=== PATIENT | female | born 2000 | race Caucasian/White ===

== ENCOUNTER 2023-04-26 12:00 | Inpatient (IN) ==
--- NOTE | 2023-04-26 12:11 | Emergency Department Note ---
Impression & Plan Depressive disorder, Vitamin D deficiency ED Provider Note NAME: JAMES MAHMOOD AGE: 23 SEX: F : 2000 ARRIVES VIA: Walk-In INFORMANT: Patient, ED PROVIDER(S): Pepito Iglesias MD CHIEF COMPLAINT: Mental illness concern MEDICAL DECISION MAKING: Patient presents due to concern for mental wellness concerns and associated increasing depression with fleeting thoughts of "what would happen if I did this?" Blood work was obtained patient was medically cleared and the patient was seen and evaluated by psych keycase assembler. Referral was made and patient was admitted to the psychiatric service Discussion w/ other healthcare providers: Quita Connolly with case management Prior /Outside records reviewed: I reviewed a an endocrinology visit from April 17, 2023 with Jeff Vasquez. Patient was seen due to concern for intractable vitamin D deficiency. 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 Differential diagnosis: Mood disorder, infection, hypoglycemia, electrolyte abnormalities, dehydration, medication side effect among others were considered. Diagnostics, as interpreted by me: ECG: None Medical decision rules: Suicide risk severity score Imaging studies: None HPI: Patient presents due to concern for worsening depressed mood as well as suicidal ideation. Patient states that she does not have a specific plan but will have fleeting thoughts where she will think about overdosing on medication that she has but she does not "engage much" in these thoughts. Patient does have a prior history of self-injurious behavior but never with intent to kill herself. The patient denies any HI or AVH. Sleep and appetite have been off the patient did have a recent change from Vyvanse to Adderall. Patient is compliant with her medications. Patient does work and states that work is stressful. Patient does smoke marijuana. The patient has not been drinking very much and last drank potentially in excess last Saturday. Patient denies any tobacco use. Patient does not have access to guns or weapons and denies feeling unsafe at home. The patient did have a telehealth appointment with her primary therapist who she tends to talk to twice a week and she was referred here for further evaluation and treatment PAST MEDICAL HISTORY: See Below PAST SURGICAL HISTORY: See Below SOCIAL HISTORY: See Below HOME MEDICATIONS: See Below ALLERGIES: See Below VITALS: See Below PHYSICAL EXAMINATION: GENERAL: NAD, non-toxic. Wearing glasses and a mask. EYE EXAM: Normal conjunctiva. PERRL, no anisocoria and EOM's grossly intact w/o pain. OROPHARYNX: Moist mucus membranes, grossly normal dentition. NECK: Supple, no nuchal rigidity, no adenopathy, non-tender. No signs of meningismus. FROM of the neck with good chin to chest and neck extension. No stridor. LUNGS: Clear to auscultation. Normal chest wall mechanics. HEART: NSR, no MRG. ABDOMEN: Abdomen soft, non-tender, no masses, no rebound or guarding. BACK: No CVA TTP. SKIN: No rashes and no bruising. UPPER EXTREMITIES: Upper extremities are grossly normal. LOWER EXTREMITIES: Grossly normal, no edema. NEURO EXAM: A&O x3, cranial nerves II-XII grossly intact, normal speech, moves all 4 extremities. 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 TMJ (temporomandibular joint disorder) ETD (eustachian tube dysfunction) Surgical History History of colonoscopy History of surgery meniscoplasty History of nasal septoplasty with turbinoplasty History of surgery fibroma removal History of tonsillectomy and adenoidectomy Family History Mother Hypertension Colorectal cancer Grandfather (Maternal) Stroke Grandfather (Paternal) Lung cancer smoker Father Environmental allergies Other Heart disease No family history of adverse response to anesthesia No family history of bleeding disorder Denies family history of Ovarian cancer Breast cancer Social History Smoking Status: Never smoker Do You Dip or Chew Tobacco: No; Hx Alcohol Use: Yes Alcohol Intake Frequency: 2-4 x/Month Hx Substance Use: Yes Non-Prescribed Medications: Marijuana Non-Prescribed Medications Comment: occasional marijuana for chronic pain - wants to stop; feels like its habit Preferred Language: Korean Communication Ability: Effective Incident Engineer Required: No Beliefs That Will Affect Care: None marital status: Single Current Living Situation: Significant Other current occupational status: employed 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 Feels Safe at Home: Yes Diet Comment: restricting calories to lose weight for surgery Physical Activity Frequency: Daily Physical Activity Frequency Comment: walking [id number] steops Gender Identity: Nonbinary Assistive Devices: Glasses Allergies Allergies Allergy/AdvReac Type Severity Reaction Status Date / Time clarithromycin [From Biaxin] Allergy Intermediate Hives Verified 04/17/23 13:06 COVID-19 (SARS-CoV-2) Allergy Intermediate HIVES WITH Verified 04/17/23 13:06 vaccine, christy 2ND DOSE house dust Allergy stuffy/runny Verified 04/17/23 13:06 nose Home Meds Home Medications Medication Instructions Recorded Confirmed vilazodone 40 mg tablet (Viibryd) 40 mg PO DAILY 06/11/21 04/26/23 dextroamphetamine-amphetamine ER 10 mg PO DAILY 04/26/23 04/26/23 10 mg 24hr capsule,extend release (Adderall XR) dextroamphetamine-amphetamine ER 20 mg PO QAM 04/26/23 04/26/23 20 mg 24hr capsule,extend release (Adderall XR) Results & Data (ED) Vital Signs Vital Signs - 24 hr 04/26/23 12:07 Temperature 36.2 C L Temperature Source Temporal Artery Scan Pulse Rate 125 H Pulse Rhythm Regular Respiratory Rate 20 Respiratory Effort / Characteristics Non-Labored Spontaneous Respiratory Depth Normal Respiratory Pattern Regular Blood Pressure 153/90 H Blood Pressure Mean 111 Blood Pressure Position Sitting Pulse Oximetry 100 Oxygen Delivery Method Room Air Sepsis Recent Fever Within 48 Hours No Sepsis New/Unexplained Change in Mental Status No Sepsis Action Taken by Nursing No Action Required Home Medications Current Medication List: was personally reviewed by me Laboratory Data Attestation: I reviewed the patient's lab results. 04/26/23 12:30 04/26/23 12:30 Lab Results 04/26/23 Range/Units 12:30 WBC 8.79 (4.8-10.8) K/ul RBC 4.90 (4.20-5.40) M/uL Hgb 13.7 (12.0-16.0) g/dl Hct 42.0 (37.0-47.0) % MCV 85.7 (80.0-100.0) fL MCH 28.0 (25.0-34.0) pg MCHC 32.6 (32.0-36.0) g/dL RDW Std Deviation 43.7 (36.4-46.3) fL RDW Coeff of Rox 14.1 (11.5-14.5) % Plt Count 349 (130-400) K/uL MPV 10.3 (9.4-12.4) fL Immature Gran % (Auto) 0.1 % Neut % (Auto) 43.4 % Lymph % (Auto) 46.2 % [place] % (Auto) 6.6 % Eos % (Auto) 2.7 % Baso % (Auto) 1.0 % Neut # (Auto) 3.81 (1.40-6.50) K/uL Lymph # (Auto) 4.06 H (1.20-3.40) K/uL [place] # (Auto) 0.58 (0.11-0.59) K/uL Eos # (Auto) 0.24 (0.00-0.50) K/uL Baso # (Auto) 0.09 (0.00-0.20) K/uL Immature Gran # (Auto) 0.01 (0.01-0.20) K/uL Sodium 140 (136-145) mmol/L Potassium 3.9 (3.5-5.1) mmol/L Chloride 106 (98-107) mmol/L Carbon Dioxide 27 (21-32) mmol/L Anion Gap 7 (3-11) BUN 9 (6-23) mg/dl Creatinine 0.66 (0.6-1.2) mg/dl Est Cr Clr Drug Dosing 152.3 ml/min Est GFR ( Amer) 142.3 ml/min Est GFR (Non-Af Amer) 122.8 ml/min BUN/Creatinine Ratio 13.6 (10-20) Glucose 69 L (70-99(Fasting)) mg/dl Calcium 9.5 (8.6-10.3) mg/dl Total Bilirubin 0.9 (0.2-1.0) mg/dl AST 21 (13-39) U/L ALT 12 (7-52) U/L Alkaline Phosphatase 69 (34-104) U/L Total Protein 7.4 (6.0-8.3) gm/dl Albumin 4.6 (3.4-5.0) gm/dl Globulin 2.8 (2.5-4.0) gm/dl Albumin/Globulin Ratio 1.6 (0.9-2) TSH 0.969 (0.300-4.500) uIu/ml Urine Color Yellow Urine Appearance Clear (Clear) Urine pH 7.0 (4.5-7.5) Ur Specific [place] 1.024 (1.000-1.030) Urine Protein Negative (Negative) Urine Glucose (UA) Negative (Negative) Urine Ketones Trace H (Negative) Urine Blood Negative (Negative) Urine Nitrite Negative (Negative) Urine Bilirubin Negative (Negative) Urine Urobilinogen Negative (Negative) Ur Leukocyte Esterase Negative (Negative) Urine Test Negative (Negative) Salicylates < 3.0 L (3.0-30) mg/dl Urine Opiates Screen Neg (Neg) Ur Methadone, Qual Neg (Neg) Acetaminophen < 3 L (10-30) ug/ml Urine Barbiturates Neg (Neg) Ur Phencyclidine (PCP) Neg (Neg) U Amphetamin/Meth Scrn Pos H (Neg) MDMA (Ecstasy) Screen Neg (Neg) U Benzodiazepines Scrn Neg (Neg) Ur Cocaine Metabolite Neg (Neg) U Marijuana (THC) Screen Pos H (Neg) Ethyl Alcohol mg/dL < 10.0 (<10.0) mg/dl Administered Medications Amphetamine/Dextroamphetamine (Amphetamine Asp/Sulf/Dextramph Er 20 Mg Cap) 20 mg PO Q24H [facility] Stop: 05/12/23 06:59 Last Admin: 04/29/23 08:28 Dose: 20 mg Documented By: Admin: 04/28/23 08:45 Dose: 20 mg Documented By: [id number] Cyanocobalamin (Cyanocobalamin (B-12) 500 Mcg Tablet) 500 mcg PO QAM [facility] Stop: 05/27/23 16:14 Last Admin: 04/29/23 08:28 Dose: 500 mcg Documented By: Admin: 04/28/23 08:45 Dose: 500 mcg Documented By: [id number] Admin: 04/27/23 17:15 Dose: 500 mcg Documented By: [email or web address] Ergocalciferol (Ergocalciferol 50,000 Units 1250 Mcg Cap) 50,000 units PO WeSa@0900 [facility] Stop: 05/27/23 16:29 Last Admin: 04/27/23 17:16 Dose: 50,000 units Documented By: ANTOINE Hydroxyzine HCl (Hydroxyzine Hcl 25 Mg Tab) 50 mg PO HSZ PRN PRN Reason: Insomnia Stop: 05/26/23 21:10 Last Admin: 04/29/23 01:03 Dose: 50 mg Documented By: ABDI Naltrexone HCl (Naltrexone Hcl 50 Mg Tab) 50 mg PO DAILY [facility] Stop: 05/28/23 08:59 Last Admin: 04/29/23 08:29 Dose: 50 mg Documented By: Admin: 04/28/23 08:45 Dose: 50 mg Documented By: [id number] Trazodone HCl (Trazodone Hcl 50 Mg Tab) 50 mg PO HS [facility] Stop: 05/28/23 21:59 Last Admin: 04/28/23 22:11 Dose: 50 mg Documented By: ANTOINE Vilazodone HCl (Vilazodone Hcl 40mg/Tab (1 Ea)) 1.5 each PO DAILY [facility]; Protocol Stop: 05/29/23 08:59 Last Admin: 04/29/23 08:29 Dose: 1.5 each Documented By: TLF Discontinued Medications Influenza Virus Vaccine Quadrival (Influenza Virus Quadrivalent Vaccine (Iiv4) 0.5 Ml Syr) 0.5 ml IM .ONCE ONE Stop: 04/27/23 09:01 Last Admin: 04/27/23 15:20 Dose: 0.5 ml Documented By: ANTOINE Miscellaneous (Viibryd 40mg Tablet--Order Awaiting Action) 1 each N/A QS [facility] Stop: 05/28/23 00:00 Last Admin: 04/28/23 04:08 Dose: Not Given Documented By: JONATAN Vilazodone HCl (Vilazodone Hcl 1 Ea) 1 each PO DAILY [facility] Stop: 05/28/23 08:59 Last Admin: 04/28/23 08:46 Dose: 1 each Documented By: [id number] Discharge Plan Visit Data Chief Complaint: Mental Health Evaluation Stated Complaint: SUICIDAL THOUGHTS ED Provider: Pepito Iglesias Discharge Problem: Depressive disorder, Vitamin D deficiency Patient Disposition: Admitted As Inpatient Discharge Instructions Interventions: ED Discharge Assessment Last Done: 04/26/23 21:01
[2023-04-26 12:53] LABS: Basophils # (auto) 0.09 K/uL (0.00-0.20); Eosinophils # (auto) 0.24 K/uL (0.00-0.50); Eosinophils % (auto) 2.7 %; Hemoglobin 13.7 g/dl (12.0-16.0); Immature Granulocytes # (auto) 0.01 K/uL (0.01-0.20); Immature Granulocytes % (auto) 0.1 %; Lymphocytes # (auto) 4.06 K/uL (1.20-3.40); Lymphocytes % (auto) 46.2 %; Mean Corpuscular Hgb Conc 32.6 g/dL (32.0-36.0); Mean Corpuscular Volume 85.7 fL (80.0-100.0); Mean Platelet Volume 10.3 fL (9.4-12.4); Monocytes # (auto) 0.58 K/uL (0.11-0.59); Monocytes % (auto) 6.6 %; Neutrophils # (auto) 3.81 K/uL (1.40-6.50); Neutrophils % (auto) 43.4 %; Platelet Count 349 K/uL (130-400); RDW Coefficient of Variation 14.1 % (11.5-14.5); RDW Standard Deviation 43.7 fL (36.4-46.3); White Blood Count 8.79 K/ul (4.8-10.8)
[2023-04-26 12:56] LABS: Appearance Urine Clear (Clear); Bilirubin Urine Negative (Negative); Blood Urine Negative (Negative); Color Urine Yellow; Glucose Urine UA Negative (Negative); Ketones Urine Trace (Negative); Leukocyte Esterase Urine Negative (Negative); Nitrite Urine Negative (Negative); Pregnancy Test, Urine Negative (Negative); Protein Urine Negative (Negative); Specific Gravity Urine 1.024 (1.000-1.030); Urobilinogen Urine Negative (Negative)
[2023-04-26 13:50] LABS: Albumin Globulin Ratio 1.6 (0.9-2); Albumin Level 4.6 gm/dl (3.4-5.0); BUN Creatinine Ratio 13.6 (10-20); Bilirubin,Total 0.9 mg/dl (0.2-1.0); Calcium 9.5 mg/dl (8.6-10.3); Creatinine Clr Calc Pharmacy 152.3 ml/min; Est GFR (African American) 142.3 ml/min; Est GFR (Non-African American) 122.8 ml/min; Globulin 2.8 gm/dl (2.5-4.0); Potassium 3.9 mmol/L (3.5-5.1); Total Protein 7.4 gm/dl (6.0-8.3)
[2023-04-26 14:00] LABS: Thyroid Stimulating Hormone 0.969 uIu/ml (0.300-4.500)
[2023-04-26 14:05] LABS: Amphetamines+Metham, Urine Pos (Neg); Barbiturates, Urine Neg (Neg); Benzodiazepine, Urine Neg (Neg); Cocaine, Urine Neg (Neg); MDMA (Ecstacy), Urine Neg (Neg); Marijuana, Urine Pos (Neg); Methadone, Urine Neg (Neg); Opiate, Urine Neg (Neg); Phencyclidine, Urine Neg (Neg)
[2023-04-26 15:03] LABS: Acetaminophen < 3 ug/ml (10-30); Salicylate < 3.0 mg/dl (3.0-30)
--- NOTE | 2023-04-26 17:29 | Emergency Department Note ---
ED Visit Note This patient was signed to me at shift change by Dr. Iglesias. The patient was medically cleared at that point and was waiting to be evaluated/voluntarily admitted. The patient was seen and evaluated by 3 S. and is going to sign involuntarily on a 201 for further inpatient treatment and evaluation. .
[2023-04-26] MEDS ORDERED: hydrOXYzine HCl 25 MG TAB PO PRN ×2 (21:11)
[2023-04-26] MEDS ORDERED: MAGNESIUM HYDROXIDE SUSP 30 ML UDC PO PRN (21:11)
[2023-04-26] MEDS ORDERED: ACETAMINOPHEN 325 MG TAB PO PRN (21:11)
[2023-04-26] MEDS ORDERED: SODIUM CHLORIDE 0.65% NA SOLN 45 ML (OCEAN) PRN (21:11)
[2023-04-26] MEDS ORDERED: BISMUTH SUBSALICYLATE LIQD 236 ML PO PRN (21:11)
[2023-04-26] MEDS ORDERED: ALUMINUM/MAGNESIUM SUSP 30 ML UDC PO PRN (21:11)
[2023-04-27 08:20] LABS: Folate (Folic Acid),Ser orPlas 6.82 ng/ml (>5.38)
[2023-04-27] MEDS ORDERED: INFLUENZA VIRUS QUADRIVALENT VACCINE (IIV4) 0.5 ML SYR IM ONE (09:00)
--- NOTE | 2023-04-27 16:07 | History & Physical ---
Date of Service April 27, 2023 Impression / Recommendations Impression 23 y/o with a history of unstable mood, self-injury. Mood diagnosis is somewhat unclear and several possibilities have been raised over the years but fairly clear BETTY and panic. Borderline personality features seem evident. Feels hopeless and [id number] now and self-injury has been increasing. Despite seeking treatment is guarded about medication changes based on previous trials that not only didn't help but made some symptoms worse. Discussed continuing vilazodone and augmenting. Reviewed naltrexone, for which there is some evidence of benefit in reducing self-injurious behavior. Discussed importance of addressing vitamin deficiencies since these are known to increase depression. We agreed that crisis stabilization followed by IOP seemed the most appropriate course. Overall I spent a total of 78 minutes on the floor for this admission including review of chart records, review of test results, direct evaluation of the patient [id number], counseling the patient, reconciling and ordering medi cation, medication education with the patient, risk assessment, discussion during interdisciplinary treatment rounds, and documentation in the electronic health record. (1) Depressive disorder: (2) Panic disorder: (3) BETTY (generalized anxiety disorder): (4) Vitamin D deficiency: (5) Vitamin B12 deficiency: Plan The patient was admitted to the [facility] ([facility]) on q15 minute checks (behavioral with suicide precautions) for safety.The patient will participate in group, recreational, and milieu therapies and will be offered additional individual and family sessions as clinically appropriate. * continue vilazodone 40 mg daily - prior to admission medication * continue amphetamine-dextroamphetamine XR 20 mg QAM - prior to admission medication * continue amphetamine-dextroamphetamine XR 10 mg daily - prior to admission medication * start naltrexone 50 mg daily Inventory Assets Strengths: has local supports, voluntary, good insight, intelligent, employed Needs: safety and stabilization, medication adjustment, additional coping skills, increased outpatient services Suicide Risk Level Suicide Risk Level: Moderate (q15 min suicide checks) (denies suicidal plan or intent but has some passive thoughts and feels unsafe) Risk Factors Assessment Male: No : Yes Do You Have Access To A Gun?: No Health Problems: Yes Mental Health Diagnoses: Yes Previous Attempt: No Previous Psychiatric Hospitalization: Yes Protective Factors Assessment Responsible for Young Children: No Employed: Yes ([employer]) Psychiatric History Identifying Data JAMES MAHMOOD (LARK), who uses "they/them" pronouns, is a 23-year-old who currently lives in [place] with a partner, has a history of depression, and was admitted on 04/26/23 20:32 on a 201 voluntary commitment for depression. Chief Complaint "I got kind of overwhelmed". History of Present Illness As part of a thorough review of the available medical records, I have read and confirmed the following note by the ED physician: "Patient presents due to concern for worsening depressed mood as well as suicidal ideation. Patient states that she does not have a specific plan but will have fleeting thoughts where she will think about overdosing on medication that she has but she does not "engage much" in these thoughts. Patient does have a prior history of self-injurious behavior but never with intent to kill herself. The patient denies any HI or AVH. Sleep and appetite have been off the patient did have a recent change from Vyvanse to Adderall. Patient is compliant with her medications. Patient does work and states that work is stressful. Patient does smoke marijuana. The patient has not been drinking very much and last drank potentially in excess last Saturday. Patient denies any tobacco use. Patient does not have access to guns or weapons and denies feeling unsafe at home. The patient did have a telehealth appointment with her primary therapist who she tends to talk to twice a week and she was referred here for further evaluation and treatment" the following note by the ED psychiatric pillowcase sewer: "Patient's paramourNia was also present. Patient states they have been anxious, depressed and having passive SI for the past two months. Patient denies a current plan. Patient reports they have a therapist that they meet with two times a week via telehealth services. Patients therapist is Rosy and can be reached at [phone]. Patient states they have an appointment with [facility] May 08 for medication management. Patients PCP is Dr. Ruiz, and Dr. Ruiz prescribes them their medication. Patient is prescribed Adderall for Narcolepsy and Viibryd for depression. Patient reports they are compliant with all medications. Patient states they recently had a medication change from Vyvanse to Adderall. Patient reports a significant history of MH. Patient states they have MDD, Anxiety, PTSD, was being assessed for OCD but does not feel they have OCD, and reports there were suspicions from previous service providers that they may have ADHD. Patient denies any legal issues past/present. Patient reports their stressors as school, employment and their relationship. Patient reported significant anxiety about the future and about the upcoming Holidays. Patient denies any katarina symptoms. Patient reports panic attacks almost daily that have increased drastically over the last few month. Patient reports SIB and states they will punch their self in the face and will scratch their self. Patient states they used to cut, but that they havent done this in a long time, but have been thinking about resorting back to cutting. Patient denies any HI. No delusions. No hallucinations. Patient has no access to weapons. Patient reports trauma from their childhood involving their brother being violent. Patient reports Marijuana use several times daily. Patient reports several appropriate coping skills but states they do not utilize them at this time due to being so depressed and feeling such self-hatred. Patient reports they do not feel they can keep their self safe at home and is requesting inpatient mental health treatment at this time." and the following note by the psychiatric liaison nurse: "Pt referred to the ED via therapist for worsening depression and increasing SI the past 2 months. Patient denied suicidal plan at first but then informed staff that they thought about overdosing on home medications. Pt is non- binary and prefers they/them pronouns. Hx violent brother and mental health issues. Last inpatient admission was in [place] approximately 10 years ago while the patient was a teenager. No other inpatient admissions. SIB by punching self in the face. Right eye is bruised from SIB. Bruising on left side of neck unrelated to SIB/SA. Stressors include: school, work, relationship, uncertain of future, and the holidays. Patient states they have "emotional outburst that includes crying spells and SIB". Patient able to contract for safety on the unit. Smokes recreational marijuana and occasional alcohol consumption. DANA's obtained for partner, Nia, and therapist. " Review of the medical record reveals no previous or outside psychiatric records. Review of pertinent labs reveals they are significant for low vitamin B12 of 157 pg/mL and low vitamin D of 21.4 ng/mL. A urine toxicology screen was positive for metabolites of amphetamine and cannabis. BAL was <10 mg/dL. screen was negative. Says carbon brush maker has been trying to get them to treat a vitamin D deficiency identified years ago for which they've done numerous courses of ergocalciferol loading but hardly ever taken any maintenance vitamin D. Pt reports "having a hard time lately with executive functioning". They have felt depressed and anxious with increasing panic attacks for about a year with greater worsening over 2 months. Denies suicidal thoughts but "used to cut" until about a year ago and since then has been punching self in the face. Reports "many, many" past medication trials, many of which caused increased anxiety or mood lability. Vilazodone "has been noticeably helpful". Has narcolepsy and takes Adderall for this. Other stimulants haven't worked well. 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 The most helpful treatment for mood thus far has been "an IOP with DBT" about a year ago. Moved to the area 2 yr ago for work from [employer] after completing biology degree. Grew up in [facility]. Family are "difficult". Main support is their partner. Past Psychiatric History Current Psychiatric Diagnosis: MDD, Anxiety, PTSD Outpatient Services: therapist Rosy Previous Psych Admissions: in [place] 10 yr ago Do You Have Access To A Gun?: No History of Previous Suicide Attempt: No Allergies Allergy/AdvReac Type Severity Reaction Status Date / Time clarithromycin [From Biaxin] Allergy Intermediate Hives Verified 04/17/23 13:06 COVID-19 (SARS-CoV-2) Allergy Intermediate HIVES WITH Verified 04/17/23 13:06 vaccine, christy 2ND DOSE house dust Allergy stuffy/runny Verified 04/17/23 13:06 nose Home Medications Medication Instructions Recorded Confirmed Type vilazodone 40 mg tablet (Viibryd) 40 mg PO DAILY 06/11/21 04/26/23 History dextroamphetamine-amphetamine ER 10 mg PO DAILY 04/26/23 04/26/23 History 10 mg 24hr capsule,extend release (Adderall XR) dextroamphetamine-amphetamine ER 20 mg PO QAM 04/26/23 04/26/23 History 20 mg 24hr capsule,extend release (Adderall XR) Family History Family History of: Other Mood Disorders Family Mental Health History Comment: Brother has significant MH history. Alcohol History Hx of Alcohol Use Over the Past 12 Months: Yes AUDIT Total Score: 3 Smoking Use Have You Smoked or Used Tobacco Products in the Last 30 Days: No Smoking Status: Never smoker Substance History Hx of Prescription Med Misuse Over the Past 12 Months: No Hx of Over the Counter Med Misuse Over the Past 12 Months: No Hx of Inhalent Misuse Over the Past 12 Months: No Hx of Organic Substance Use Over the Past 12 Months: Yes (Daily 3-4x) Hx of Illegal Substances/Street Drug Use Over Past 12 Months: No Problems as a Result of Past Substance Use: None Identified Personal History Living Arrangements: Apartment Highest Grade Completed: College Beliefs That Will Affect Care: None Patient History Medical History (Updated 04/27/23 @ 23:47 by Pino Shirley MD) Panic disorder BETTY (generalized anxiety disorder) Vitamin B12 deficiency Vitamin D deficiency IgA deficiency 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 TMJ (temporomandibular joint disorder) ETD (eustachian tube dysfunction) Surgical History History of colonoscopy History of surgery meniscoplasty History of nasal septoplasty with turbinoplasty History of surgery fibroma removal History of tonsillectomy and adenoidectomy Family History Mother Hypertension Colorectal cancer Grandfather (Maternal) Stroke Grandfather (Paternal) Lung cancer smoker Father Environmental allergies Other Heart disease No family history of adverse response to anesthesia No family history of bleeding disorder Denies family history of Ovarian cancer Breast cancer Social History Smoking Status: Never smoker Do You Dip or Chew Tobacco: No; Hx Alcohol Use: Yes Alcohol Intake Frequency: 2-4 x/Month Hx Substance Use: Yes Non-Prescribed Medications: Marijuana Non-Prescribed Medications Comment: occasional marijuana for chronic pain - wants to stop; feels like its habit Preferred Language: Maori Communication Ability: Effective Cutter Machine Tender Required: No Beliefs That Will Affect Care: None marital status: Single Current Living Situation: Significant Other current occupational status: employed 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 Feels Safe at Home: Yes Diet Comment: restricting calories to lose weight for surgery Physical Activity Frequency: Daily Physical Activity Frequency Comment: walking [id number] steops Gender Identity: Nonbinary Assistive Devices: Glasses Review of Systems Psychiatric: + depression, + hopelessness, + anhedoni a, + anxiety, + panic attacks and + difficulty concentrating; no suicidal ideation, no paranoia and no hallucinations Physical Exam Psychiatric: Orientation: alert, oriented to person, oriented to place, oriented to time and cooperative Apperance: appropriately dressed, appropriately groomed and appeared stated age Eye Contact: good eye contact Motor Behavior: no abnormal motor movements Speech: normal rate/rhythm/volume of speech Affect: + constricted affect Mood: + depressed mood and + anxious mood Thought Process: linear/logical thought process and thought association intact Thought Content: + cognitive distortions, reality based without delusions and + self deprecation Suicidal Thoughts: denies suicidal thoughts, denies suicidal plan and denies suicidal intent Homicidal Thoughts: denies homicidal thoughts Hallucinations: no auditory hallucinations and no visual hallucinations Cognition: recent memory grossly intact, remote memory grossly intact, attention grossly intact and language grossly intact Estimated Intelligence: consistent with education level Insight: + fair insight Judgment: + fair judgement Vital Signs (Past 24 Hours): Last Vital Signs Temp 36.9 C 04/27/23 06:29 Pulse 60 04/27/23 06:32 Resp 16 04/27/23 06:29 BP 130/86 04/27/23 06:32 Pulse Ox 100 04/26/23 21:15 O2 Del Method Room Air 04/26/23 21:15 Exam Statement: A physical exam was performed in the ED for the purposes of medical clearance. I accept that physical as correct and adequate for the purposes of the inpatient physical exam. Results & Data ([facility]) Laboratory Results Laboratory Results - last 24 hr 04/26/23 04/26/23 04/27/23 12:30 Unknown 07:07 WBC 8.79 RBC 4.90 Hgb 13.7 Hct 42.0 MCV 85.7 MCH 28.0 MCHC 32.6 RDW Std Deviation 43.7 RDW Coeff of Rox 14.1 Plt Count 349 MPV 10.3 Immature Gran % (Auto) 0.1 Neut % (Auto) 43.4 Lymph % (Auto) 46.2 [place] % (Auto) 6.6 Eos % (Auto) 2.7 Baso % (Auto) 1.0 Neut # (Auto) 3.81 Lymph # (Auto) 4.06 H [place] # (Auto) 0.58 Eos # (Auto) 0.24 Baso # (Auto) 0.09 Immature Gran # (Auto) 0.01 Sodium 140 Potassium 3.9 Chloride 106 Carbon Dioxide 27 Anion Gap 7 BUN 9 Creatinine 0.66 Est Cr Clr Drug Dosing 152.3 Est GFR ( Amer) 142.3 Est GFR (Non-Af Amer) 122.8 BUN/Creatinine Ratio 13.6 Glucose 69 L Calcium 9.5 Total Bilirubin 0.9 AST 21 ALT 12 Alkaline Phosphatase 69 Total Protein 7.4 Albumin 4.6 Globulin 2.8 Albumin/Globulin Ratio 1.6 Vitamin B12 157 L 25-OH Vitamin D Total 21.4 L Folate 6.82 TSH 0.969 Urine Color Yellow Urine Appearance Clear Urine pH 7.0 Ur Specific [place] 1.024 Urine Protein Negative Urine Glucose (UA) Negative Urine Ketones Trace H Urine Blood Negative Urine Nitrite Negative Urine Bilirubin Negative Urine Urobilinogen Negative Ur Leukocyte Esterase Negative Urine Test Negative Salicylates < 3.0 L Urine Opiates Screen Neg Ur Methadone, Qual Neg Acetaminophen < 3 L Urine Barbiturates Neg Ur Phencyclidine (PCP) Neg U Amphetamines Confirm Pending U Amphetamin/Meth Scrn Pos H U Methamphetamin Confrm Pending MDMA (Ecstasy) Screen Neg U Benzodiazepines Scrn Neg Ur Cocaine Metabolite Neg U Marijuana (THC) Screen Pos H U Marijuana THC Carboxy Pending Drug Screen Comment Pending Ethyl Alcohol mg/dL < 10.0 SARS-CoV-2, RNA, NAAT NEGATIVE Current Inpatient Medications Current Inpatient Medications: Current Inpatient Medications Acetaminophen (Acetaminophen 325 Mg Tab) 650 mg PO Q4H PRN PRN Reason: Headache or Minor Fever Stop: 05/26/23 21:10 Al Hydrox/Mg Hydrox/Simethicone (Aluminum/Magnesium Susp 30 Ml Udc) 30 ml PO Q4H PRN PRN Reason: GI Upset Stop: 05/26/23 21:10 Bismuth Subsalicylate (Bismuth Subsalicylate Liqd 236 Ml) 15 ml PO PRN PRN PRN Reason: Loose Stool Stop: 05/26/23 21:10 Hydroxyzine HCl (Hydroxyzine Hcl 25 Mg Tab) 50 mg PO HSZ PRN PRN Reason: Insomnia Stop: 05/26/23 21:10 Hydroxyzine HCl (Hydroxyzine Hcl 25 Mg Tab) 25 mg PO Q4H PRN PRN Reason: Anxiety Stop: 05/26/23 21:10 Magnesium Hydroxide (Magnesium Hydroxide Susp 30 Ml Udc) 30 ml PO DAILY PRN PRN Reason: Constipation Stop: 05/26/23 21:10 Sodium Chloride (Sodium Chloride 0.65% Na Soln 45 Ml ([place])) 1 - 2 sprays NA PRN PRN PRN Reason: Nasal Dryness/Congestion Stop: 05/26/23 21:10
[2023-04-27] MEDS ORDERED: ERGOCALCIFEROL 50,000 UNITS 1250 MCG CAP PO SCH (16:30)
[2023-04-27] MEDS: CYANOCOBALAMIN (B-12) 500 MCG TABLET PO SCH (17:15)
[2023-04-28] MEDS ORDERED: DEXTROAMPHETAMINE/AMPHETAMINE ER 10 MG CAP PO PRN (02:02)
[2023-04-28] MEDS ORDERED: DEXTROAMPHETAMINE/AMPHETAMINE ER 10 MG CAP PO SCH ×2 (07:00→09:00)
[2023-04-28] MEDS: CYANOCOBALAMIN (B-12) 500 MCG TABLET PO SCH (08:45)
[2023-04-28] MEDS: NALTREXONE HCL 50 MG TAB PO SCH (08:45)
[2023-04-28] MEDS: AMPHETAMINE ASP/SULF/DEXTRAMPH ER 20 MG CAP PO SCH (08:45)
[2023-04-28] MEDS ORDERED: VILAZODONE HCL 1 EA PO SCH (09:00)
[2023-04-28] MEDS ORDERED: AMPHETAMINE ASP/SULF/DEXTRAMPH ER 20 MG CAP PO SCH (09:00)
--- NOTE | 2023-04-28 12:16 | Psychiatric Progress Note ---
Date of Service April 28, 2023 Impression / Recommendations Impression 23 y/o with a history of unstable mood, self-injury. Mood diagnosis is somewhat unclear and several possibilities have been raised over the years but fairly clear BETTY and panic. Borderline personality features seem evident. Feels hopeless and [id number] now and self-injury has been increasing. Despite seeking treatment is guarded about medication changes based on previous trials that not only didn't help but made some symptoms worse. 04/28/2023: Had a good visit from their partner today. Discussed diagnostic possibilities at some length. Pt says clinicians have always brought up PTSD, borderline personality, and bipolar diagnoses. She does not believe she has bipolar disorder (and I agree) because of no manic episode. From her understanding "there's a big overlap in the middle of the Venn diagram" for PTSD and borderline personality and she believes she has one or both of those conditions. Discussed cautious trial of increased vilazodone (which would exceed the package insert dosing guidelines), which she would like to do. 04/27/2023: Discussed continuing vilazodone and augmenting. Reviewed naltrexone, for which there is some evidence of benefit in reducing self-injurious behavior. Discussed importance of addressing vitamin deficiencies since these are known to increase depression. We agreed that crisis stabilization followed by IOP seemed the most appropriate course. (1) Complex posttraumatic stress disorder: (2) Borderline personality disorder: (3) Panic disorder: (4) BETTY (generalized anxiety disorder): (5) Vitamin D deficiency: (6) Vitamin B12 deficiency: Plan 04/28/2023: * increase vilazodone to 60 mg daily - prior to admission medication at 40 mg * continue amphetamine-dextroamphetamine XR 20 mg QAM - prior to admission medication * continue amphetamine-dextroamphetamine XR 10 mg daily - prior to admission medication * continue naltrexone 50 mg daily * anticipate discharge tomorrow with referral to IOP/DBT 04/27/2023: The patient was admitted to the [facility] ([facility] unit) on q15 minute checks (behavioral with suicide precautions) for safety.The patient will participate in group, recreational, and milieu therapies and will be offered additional individual and family sessions as clinically appropriate. * continue vilazodone 40 mg daily - prior to admission medication * continue amphetamine-dextroamphetamine XR 20 mg QAM - prior to admission medication * continue amphetamine-dextroamphetamine XR 10 mg daily - prior to admission medication * start naltrexone 50 mg daily Inventory Assets Strengths: has local supports, voluntary, good insight, intelligent, employed Needs: safety and stabilization, medication adjustment, additional coping skills, increased outpatient services Suicide Risk Level Suicide Risk Level: Moderate (q15 min suicide checks) (denies suicidal plan or intent but has some passive thoughts and feels unsafe) Risk Factors Assessment Male: No : Yes Do You Have Access To A Gun?: No Health Problems: Yes Mental Health Diagnoses: Yes Previous Attempt: No Previous Psychiatric Hospitalization: Yes Protective Factors Assessment Responsible for Young Children: No Employed: Yes ([employer]) Interval History Identifying Information JAMES "ARMANDO" TIMOTEO, who uses "they/them" pronouns, is a 23-year-old who currently lives in [place] with a partner, has a history of depression, and was admitted on 04/26/23 20:32 on a 201 voluntary commitment for depression. Chief Complaint "Smoothing out". Review of Systems Sleep Information Total Hours of Sleep: 5.5 Meal Information Percent Meal Consumed - Breakfast: 100 Percent Meal Consumed - Lunch: 100 Percent Meal Consumed - Dinner: 90 Subjective Subjective The patient was seen and assessed and interval progress reviewed in a multidisciplinary team meeting with the treatment team. For details, see the "Impression" section. Overall I spent a total of 52 minutes for this inpatient follow-up including review of chart records, review of test results, direct evaluation of the patient [id number], counseling the patient, reconciling and ordering medication, medication education with the patient, risk assessment, discussion during interdisciplinary treatment rounds, and documentation in the electronic health record. Physical Exam Psychiatric Orientation: alert, oriented to person, oriented to place, oriented to time and cooperative Apperance: appropriately dressed, appropriately groomed and appeared stated age Eye Contact: good eye contact Motor Behavior: no abnormal motor movements Speech: normal rate/rhythm/volume of speech Affect: + constricted affect Mood: + depressed mood and + anxious mood Thought Process: linear/logical thought process and thought association intact Thought Content: + cognitive distortions, reality based without delusions and + self deprecation Suicidal Thoughts: denies suicidal thoughts, denies suicidal plan and denies suicidal intent Homicidal Thoughts: denies homicidal thoughts Hallucinations: no auditory hallucinations and no visual hallucinations Cognition: recent memory grossly intact, remote memory grossly intact, attention grossly intact and language grossly intact Estimated Intelligence: consistent with education level Insight: + fair insight Judgment: + fair judgement Vital Signs (Past 24 Hours) Last Vital Signs Temp 36.7 C 04/28/23 06:28 Pulse 80 04/28/23 06:29 Resp 16 04/28/23 06:28 BP 130/81 04/28/23 06:29 Pulse Ox 100 04/26/23 21:15 O2 Del Method Room Air 04/26/23 21:15 Results & Data ([facility]) Current Inpatient Medications Current Inpatient Medications: Current Inpatient Medications Acetaminophen (Acetaminophen 325 Mg Tab) 650 mg PO Q4H PRN PRN Reason: Headache or Minor Fever Stop: 05/26/23 21:10 Al Hydrox/Mg Hydrox/Simethicone (Aluminum/Magnesium Susp 30 Ml Udc) 30 ml PO Q4H PRN PRN Reason: GI Upset Stop: 05/26/23 21:10 Amphetamine/Dextroamphetamine (Amphetamine Asp/Sulf/Dextramph Er 20 Mg Cap) 20 mg PO Q24H [facility] Stop: 05/12/23 06:59 Last Admin: 04/28/23 08:45 Dose: 20 mg Amphetamine/Dextroamphetamine (Dextroamphetamine/Amphetamine Er 10 Mg Cap) 10 mg PO UD PRN PRN Reason: EXCESSIVE SLEEPINESS Stop: 05/12/23 02:01 Bismuth Subsalicylate (Bismuth Subsalicylate Liqd 236 Ml) 15 ml PO PRN PRN PRN Reason: Loose Stool Stop: 05/26/23 21:10 Cyanocobalamin (Cyanocobalamin (B-12) 500 Mcg Tablet) 500 mcg PO QAM [facility] Stop: 05/27/23 16:14 Last Admin: 04/28/23 08:45 Dose: 500 mcg Ergocalciferol (Ergocalciferol 50,000 Units 1250 Mcg Cap) 50,000 units PO WeSa@0900 [facility] Stop: 05/27/23 16:29 Last Admin: 04/27/23 17:16 Dose: 50,000 units Hydroxyzine HCl (Hydroxyzine Hcl 25 Mg Tab) 50 mg PO HSZ PRN PRN Reason: Insomnia Stop: 05/26/23 21:10 Hydroxyzine HCl (Hydroxyzine Hcl 25 Mg Tab) 25 mg PO Q4H PRN PRN Reason: Anxiety Stop: 05/26/23 21:10 Magnesium Hydroxide (Magnesium Hydroxide Susp 30 Ml Udc) 30 ml PO DAILY PRN PRN Reason: Constipation Stop: 05/26/23 21:10 Naltrexone HCl (Naltrexone Hcl 50 Mg Tab) 50 mg PO DAILY [facility] Stop: 05/28/23 08:59 Last Admin: 04/28/23 08:45 Dose: 50 mg Sodium Chloride (Sodium Chloride 0.65% Na Soln 45 Ml ([place])) 1 - 2 sprays NA PRN PRN PRN Reason: Nasal Dryness/Congestion Stop: 05/26/23 21:10 Vilazodone HCl (Vilazodone Hcl 1 Ea) 1 each PO DAILY [facility] Stop: 05/28/23 08:59 Last Admin: 04/28/23 08:46 Dose: 1 each Mental Health & Subst Abuse Tx Psychiatrist Name of Psychiatrist: Stefan [facility] Psychiatrist's Date Of Appointment With Psychiatric Provider: 05/08/2023 Time of Appointment with Psychiatrist: please follow up directly to confirm appointment time Psychiatric Appointment Comment: [address] [place] [address] Therapist Name of Therapist: Rosy Patel LPC Therapist's Time of Therapist Appointment: please follow up with your regular schedule Post Discharge Appointments Primary Care Physician Name Of Family Doctor/PCP: [facility] Date of Future Appointment with PCP: . Time of Appointment with PCP: please follow up directly to confirm next appointment Provider Appointment Comment: [address] [place] [address] Contact Information Discharge Discharge Address: [facility] [address], [place] [address]
[2023-04-28] MEDS ORDERED: traZODone HCL 50 MG TAB PO PRN (16:54)
[2023-04-28] MEDS ORDERED: traZODone HCL 50 MG TAB PO SCH (22:00)
[2023-04-29] MEDS: AMPHETAMINE ASP/SULF/DEXTRAMPH ER 20 MG CAP PO SCH (08:28)
[2023-04-29] MEDS: CYANOCOBALAMIN (B-12) 500 MCG TABLET PO SCH (08:28)
[2023-04-29] MEDS: NALTREXONE HCL 50 MG TAB PO SCH (08:29)
[2023-04-29] MEDS ORDERED: DEXTROAMPHETAMINE/AMPHETAMINE ER 10 MG CAP PO SCH (09:00)
[2023-04-29] MEDS ORDERED: VILAZODONE HCL PO SCH (09:00)
[2023-04-29 13:03] LABS: Amphetamine Urine, Confirm 7670 ng/mL (<250); Marijuana Quant, GCMS Urine >5000 ng/mL (<5); Methamphetamine, Ur Confirm NEGATIVE ng/mL (<250)
--- NOTE | 2023-04-29 14:14 | Psychiatric Progress Note ---
Date of Service April 29, 2023 Impression / Recommendations Impression 23 y/o with a history of unstable mood, self-injury. Mood diagnosis is somewhat unclear and several possibilities have been raised over the years but fairly clear BETTY and panic. Borderline personality features seem evident. Feels hopeless and [id number] now and self-injury has been increasing. Despite seeking treatment is guarded about medication changes based on previous trials that not only didn't help but made some symptoms worse. 04/28/2023: Had a good visit from their partner today. Discussed diagnostic possibilities at some length. Pt says clinicians have always brought up PTSD, borderline personality, and bipolar diagnoses. She does not believe she has bipolar disorder (and I agree) because of no manic episode. From her understanding "there's a big overlap in the middle of the Venn diagram" for PTSD and borderline personality and she believes she has one or both of those conditions. Discussed cautious trial of increased vilazodone (which would exceed the package insert dosing guidelines), which she would like to do. 04/27/2023: Discussed continuing vilazodone and augmenting. Reviewed naltrexone, for which there is some evidence of benefit in reducing self-injurious behavior. Discussed importance of addressing vitamin deficiencies since these are known to increase depression. We agreed that crisis stabilization followed by IOP seemed the most appropriate course. (1) Complex posttraumatic stress disorder: (2) Borderline personality disorder: (3) Panic disorder: (4) BETTY (generalized anxiety disorder): (5) Vitamin D deficiency: (6) Vitamin B12 deficiency: Plan 04/28/2023: * increase vilazodone to 60 mg daily - prior to admission medication at 40 mg * continue amphetamine-dextroamphetamine XR 20 mg QAM - prior to admission medication * continue amphetamine-dextroamphetamine XR 10 mg daily - prior to admission medication * continue naltrexone 50 mg daily * anticipate discharge tomorrow with referral to IOP/DBT 04/27/2023: The patient was admitted to the [facility] ([facility] mental health unit) on q15 minute checks (behavioral with suicide precautions) for safety.The patient will participate in group, recreational, and milieu therapies and will be offered additional individual and family sessions as clinically appropriate. * continue vilazodone 40 mg daily - prior to admission medication * continue amphetamine-dextroamphetamine XR 20 mg QAM - prior to admission medication * continue amphetamine-dextroamphetamine XR 10 mg daily - prior to admission medication * start naltrexone 50 mg daily Inventory Assets Strengths: has local supports, voluntary, good insight, intelligent, employed Needs: safety and stabilization, medication adjustment, additional coping skills, increased outpatient services Suicide Risk Level Suicide Risk Level: Moderate (q15 min suicide checks) (denies suicidal plan or intent but has some passive thoughts and feels unsafe) Risk Factors Assessment Male: No : Yes Do You Have Access To A Gun?: No Health Problems: Yes Mental Health Diagnoses: Yes Previous Attempt: No Previous Psychiatric Hospitalization: Yes Protective Factors Assessment Responsible for Young Children: No Employed: Yes ([employer]) Interval History Identifying Information JAMES "ARMANDO" TIMOTEO, who uses "they/them" pronouns, is a 23-year-old who currently lives in [place] with a partner, has a history of depression, and was admitted on 04/26/23 20:32 on a 201 voluntary commitment for depression. Chief Complaint "[]". Review of Systems Sleep Information Total Hours of Sleep: 6 Sleep Comments: Vistaril 50 mg Meal Information Percent Meal Consumed - Breakfast: 100 Percent Meal Consumed - Lunch: 80 Percent Meal Consumed - Dinner: 100 Subjective Subjective Patient was seen & assessed and interval progress reviewed with [treatment team] [nursing and social work] Physical Exam Psychiatric Orientation: alert, oriented to person, oriented to place, oriented to time and cooperative Apperance: appropriately dressed, appropriately groomed and appeared stated age Eye Contact: good eye contact Motor Behavior: no abnormal motor movements Speech: normal rate/rhythm/volume of speech Affect: + constricted affect Mood: + depressed mood and + anxious mood Thought Process: linear/logical thought process and thought association intact Thought Content: + cognitive distortions, reality based without delusions and + self deprecation Suicidal Thoughts: denies suicidal thoughts, denies suicidal plan and denies suicidal intent Homicidal Thoughts: denies homicidal thoughts Hallucinations: no auditory hallucinations and no visual hallucinations Cognition: recent memory grossly intact, remote memory grossly intact, attention grossly intact and language grossly intact Estimated Intelligence: consistent with education level Insight: + fair insight Judgment: + fair judgement Vital Signs (Past 24 Hours) Last Vital Signs Temp 36.9 C 04/29/23 06:31 Pulse 80 04/29/23 06:32 Resp 16 04/29/23 06:31 BP 119/77 04/29/23 06:32 Pulse Ox 100 04/26/23 21:15 O2 Del Method Room Air 04/26/23 21:15 Results & Data ([facility]) Laboratory Results Laboratory Results - last 24 hr 04/26/23 12:30 U Amphetamines Confirm 7670 H U Methamphetamin Confrm NEGATIVE U Marijuana THC Carboxy >5000 H Drug Screen Comment SEE NOTE Current Inpatient Medications Current Inpatient Medications: Current Inpatient Medications Acetaminophen (Acetaminophen 325 Mg Tab) 650 mg PO Q4H PRN PRN Reason: Headache or Minor Fever Stop: 05/26/23 21:10 Al Hydrox/Mg Hydrox/Simethicone (Aluminum/Magnesium Susp 30 Ml Udc) 30 ml PO Q4H PRN PRN Reason: GI Upset Stop: 05/26/23 21:10 Amphetamine/Dextroamphetamine (Amphetamine Asp/Sulf/Dextramph Er 20 Mg Cap) 20 mg PO Q24H [facility] Stop: 05/12/23 06:59 Last Admin: 04/29/23 08:28 Dose: 20 mg Amphetamine/Dextroamphetamine (Dextroamphetamine/Amphetamine Er 10 Mg Cap) 10 mg PO UD PRN PRN Reason: EXCESSIVE SLEEPINESS Stop: 05/12/23 02:01 Amphetamine/Dextroamphetamine (Dextroamphetamine/Amphetamine Er 10 Mg Cap) 10 mg PO DAILY [facility] Stop: 05/13/23 08:59 Last Admin: 04/29/23 11:50 Dose: Not Given Bismuth Subsalicylate (Bismuth Subsalicylate Liqd 236 Ml) 15 ml PO PRN PRN PRN Reason: Loose Stool Stop: 05/26/23 21:10 Cyanocobalamin (Cyanocobalamin (B-12) 500 Mcg Tablet) 500 mcg PO QAM [facility] Stop: 05/27/23 16:14 Last Admin: 04/29/23 08:28 Dose: 500 mcg Ergocalciferol (Ergocalciferol 50,000 Units 1250 Mcg Cap) 50,000 units PO WeSa@0900 [facility] Stop: 05/27/23 16:29 Last Admin: 04/27/23 17:16 Dose: 50,000 units Hydroxyzine HCl (Hydroxyzine Hcl 25 Mg Tab) 50 mg PO HSZ PRN PRN Reason: Insomnia Stop: 05/26/23 21:10 Last Admin: 04/29/23 01:03 Dose: 50 mg Hydroxyzine HCl (Hydroxyzine Hcl 25 Mg Tab) 25 mg PO Q4H PRN PRN Reason: Anxiety Stop: 05/26/23 21:10 Magnesium Hydroxide (Magnesium Hydroxide Susp 30 Ml Udc) 30 ml PO DAILY PRN PRN Reason: Constipation Stop: 05/26/23 21:10 Naltrexone HCl (Naltrexone Hcl 50 Mg Tab) 50 mg PO DAILY [facility] Stop: 05/28/23 08:59 Last Admin: 04/29/23 08:29 Dose: 50 mg Sodium Chloride (Sodium Chloride 0.65% Na Soln 45 Ml ([facility])) 1 - 2 sprays NA PRN PRN PRN Reason: Nasal Dryness/Congestion Stop: 05/26/23 21:10 Trazodone HCl (Trazodone Hcl 50 Mg Tab) 50 mg PO HS PRN PRN Reason: if not asleep within 1 hour of initial dose Stop: 05/28/23 16:53 Trazodone HCl (Trazodone Hcl 100 Mg Tab) 100 mg PO HS [facility] Stop: 05/29/23 21:59 Vilazodone HCl (Vilazodone Hcl 40mg/Tab (1 Ea)) 1.5 each PO DAILY [facility]; Protocol Stop: 05/29/23 08:59 Last Admin: 04/29/23 08:29 Dose: 1.5 each Mental Health & Subst Abuse Tx Psychiatrist Name of Psychiatrist: Stefan Hunt Psychiatrist's Date Of Appointment With Psychiatric Provider: 05/08/2023 Time of Appointment with Psychiatrist: please follow up directly to confirm appointment time Psychiatric Appointment Comment: [address] [place] [address] Psychiatrist Release of Information: Obtained, Reviewed and Signed Therapist Name of Therapist: Rosy Patel LPC Therapist's Time of Therapist Appointment: please follow up with your regular schedule Post Discharge Appointments Primary Care Physician Name Of Family Doctor/PCP: [facility] Primary [facility] Date of Future Appointment with PCP: . Time of Appointment with PCP: please follow up directly to confirm next appointment Provider Appointment Comment: [address] [place] [address] Contact Information Discharge Discharge Address: [address], [address], [place] [address]
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
[2023-04-29] MEDS ORDERED: traZODone HCL 100 MG TAB PO SCH (22:00)
== END 2023-04-29 18:11 | disposition home or self-care (01) | DRG 882 ==
LOC: ED 12:00 → 3S 20:32